=== PATIENT | female | born 1975 | race Caucasian/White ===

== ENCOUNTER 2023-11-04 13:49 | Day surgery (SDC) | payer OTHER, SELFPAY ==
[2023-11-04] VITALS (14 sets, daily range): BP systolic 138–189; BP diastolic 83–128; PULSE 62–104; RESP 11–16; TEMP 36.2–36.8; O2SAT 95–100; BMI 26.4
--- NOTE | 2023-11-04 | PATH_ITS ---
[facility] Accession Number: [id number] No. of containers..01 Tissue . 01 Material submitted: . appendix - APPENDIX . 01 Diagnosis: Vermiform Appendix, Appendectomy: Low-grade appendiceal mucinous neoplasm. - Margins of resection clear of neoplasm. - Negative for extra-appendiceal mucinous deposition or epithelium. - Background focal mild acute and eosinophilic inflammation of epithelium consistent with acute appendicitis. MRV 11/21/2023 1317 Local . 01 Comment: This case is also reviewed by Dr. Phill Maria, who concurs with the given interpretation. The particular features of this low-grade appendiceal mucinous neoplasm are considered a low risk of recurrence. . 01 Electronically signed: . Leisa Bloom MD, Pathologist NPI- [id number] . 01 Gross description: . The specimen is received in formalin, labeled with the patient's name, , and appendix, and consists of a duran vermiform appendix measuring 4.2 cm in length by 0.7 cm in average diameter with a small amount of mesoappendix extending out to 0.8 cm. The margin is inked blue. Sectioning reveals the lumen to contain clear mucoid material with no fecalith identified. The lumen averages 0.3 cm in diameter. The mucosa is slightly ragged and irregular. The toure average 0.3 cm thick with no perforation of distinct lesions identified. Casting Supervisor sections are submitted as follows: A1: Margin and entire bisected distal tip. A2: Casting Supervisor cross-sections. ([id number]) . The remaining appendix is submitted in cassettes A3-A4. ([id number]) /FRR 11/16/2023 1109 Local . 01 Pathologist provided ICD-10: K35.30 . 01 CPT . 934455 Specimen Comment: A courtesy copy of this report has been sent to [phone] Performed at: 01 [facility] [address] [place] [address], [place], [place] [id number] MD Samuel Sheridan MD Phone: [phone]
--- NOTE | 2023-11-04 14:16 | ED.ABDPAIN ---
HPI - Abdominal Pain <Joss Faustin PA-C - Last Filed: 11/04/23 15:53> General Chief Complaint: Abdominal Pain Stated Complaint: sent by urgent care for appendicitis Time Seen by Provider: 11/04/23 14:16 History of Present Illness HPI narrative: This is a 48-year-old female presents emergency department due to intermittent right lower quadrant abdominal pain for the last 3 days. She states that she was not in any pain currently but at times it causes her enough to ?double over?. She was seen at [facility] urgent care where they ordered an outpatient CT as they stated that they had limited surgery capabilities due to blackouts. CT showed possible early appendicitis. Tactile fever earlier this morning. Denies any nausea, vomiting, chest pain, shortness of breath, or any other concerning signs or symptoms. Patient had lab work and CT scan done. Lab work showed white blood cell 5.7, hemoglobin 12.9, neutrophil 58. Potassium 3.3. Creatinine 0.64. Bilirubin 2.0. UA negative for leukocytes and nitrites. CT scan on report showed ?suspect early acute appendicitis, no findings to suggest appendiceal perforation, no abscess. There is mild thickening of the terminal ileum and mild colonic wall thickening involving ascending colon, hepatic flexure, transverse colon and descending colon. CT findings suggest infectious enterocolitis or inflammatory bowel disease such as Crohn's disease. Recommended clinical correlation and follow up?. Patient was directed to come to our emergency department for further evaluation and management. Previously diagnosed with hypertension but not taking any medications. History of multiple sclerosis. History of cholecystectomy. Not on blood thinners. Has not eaten food or fluids today. Related Data Home Medications Medication Instructions Recorded Confirmed citalopram 10 mg tablet 10 mg PO DAILY 11/04/23 11/04/23 loratadine 10 mg tablet 10 mg PO DAILY 11/04/23 11/04/23 omeprazole 20 mg capsule,delayed 20 mg PO DAILY 11/04/23 11/04/23 release Previous Rx's Medication Instructions Recorded hydrocodone 5 mg-acetaminophen 325 1 tab PO Q8H PRN pain #10 tabs 11/05/23 mg tablet Allergies Allergy/AdvReac Type Severity Reaction Status Date / Time Opioids - Morphine Analogues Allergy ITCHING Verified 11/04/23 14:22 Sulfa (Sulfonamide AdvReac Vomiting Verified 11/04/23 14:22 Antibiotics) Review of Systems <Joss Faustin PA-C - Last Filed: 11/04/23 15:53> Review of Systems Narrative: GENERAL: Denies chills, fatigue, malaise, fever, sweats. HEENT: Denies sinus pain, ear pain, sore throat, difficulty swallowing, dizziness. RESPIRATORY: Denies dyspnea, cough, wheezing, hemoptysis, sputum. CARDIOVASCULAR: Denies chest pain, palpitations, orthopnea, edema, GASTROINTESTINAL: Reports right lower quadrant abdominal pain, nausea, vomiting : Denies dysuria, frequency, incontinence, hematuria, urinary retention. MUSCULOSKELETAL: denies weakness, joint pain, or bony pain SKIN: Denies rash, skin lesions, or other NEUROLOGIC: Denies weakness, headache, numbness, change in speech, confusion, seizures, incoordination. PSYCHIATRIC: No concerning psychosocial issues. 12 point review of systems is negative except for those stated above Patient History <Joss Faustin PA-C - Last Filed: 11/04/23 15:53> Social History household members: spouse Smoking Status: Never smoker Exam <LOVE Hsu Last Filed: 11/04/23 15:53> Narrative Exam Narrative: GENERAL: Well-developed patient, in mild distress. HEAD: Atraumatic. Normocephalic. EYES: Pupils equal round and reactive. Extraocular motions intact. No scleral icterus. No injection or drainage. ENT: Nose without bleeding, purulent drainage. Throat without erythema, tonsillar hypertrophy or exudate. Airway patent. NECK: Trachea midline. Non tender CARDIOVASCULAR: Regular rate and rhythm without murmurs, gallops, or rubs. RESPIRATORY: Clear to auscultation. Breath sounds equal bilaterally. No wheezes, rales, or rhonchi. GASTROINTESTINAL: Abdomen soft, non-tender, nondistended. Nontender to the right lower quadrant currently although patient states that she was severe right lower quadrant tenderness intermittently. EXTREMITIES: No edema or joint tenderness. BACK: Nontender without deformity or crepitance. No flank tenderness. NEURO: AOx3. SKIN: No rash or erythema of visible areas Initial Vital Signs Initial Vital Signs: Vital Signs Temperature 98.2 F 11/04/23 14:19 Pulse Rate 63 11/04/23 14:19 Respiratory Rate 16 11/04/23 14:19 Blood Pressure 189/128 H 11/04/23 14:19 Oxygen Delivery Method Room Air 11/04/23 14:19 <Nolvia Ashby DO - Last Filed: 11/09/23 10:07> Initial Vital Signs Initial Vital Signs: Vital Signs Temperature 98.2 F 11/04/23 14:19 Pulse Rate 63 11/04/23 14:19 Respiratory Rate 16 11/04/23 14:19 Blood Pressure 189/128 H 11/04/23 14:19 Oxygen Delivery Method Room Air 11/04/23 14:19 Course <Joss Faustin PA-C - Last Filed: 11/04/23 15:53> Orders Ordered: Discontinued Medications Acetaminophen (Acetaminophen 325 Mg Tablet) 975 mg PO NOW ONE Stop: 11/04/23 15:46 Last Admin: 11/04/23 16:24 Dose: 975 mg Documented By: ESTEBAN Acetaminophen (Acetaminophen 325 Mg Tablet) 650 mg PO Q6H PRN PRN Reason: Fever/Mild Pain (1-3) Hydrocodone Bitart/Acetaminophen (Hydrocodone/Acet 5/325 Tablet) 1 tab PO Q4H PRN PRN Reason: Pain, Moderate (4-6) Hydrocodone Bitart/Acetaminophen (Hydrocodone/Acet 5/325 Tablet) 2 tab PO Q4H PRN PRN Reason: Pain, Severe (7-10) Benzocaine (Benzocaine/Menthol 1 Daniel Pkt) 1 each PO PRN PRN PRN Reason: Sore Throat Bupivacaine HCl 30 ml/ (Epinephrine HCl 0.15 mg) 0 ml INJ NOW ONE Stop: 11/04/23 17:00 Last Admin: 11/04/23 17:00 Dose: 20 ml Documented By: Fentanyl (Fentanyl 100 Mcg/2 Ml Inj) 0 mcg IV Q5MIN PRN PRN Reason: Pain, Severe (7-10) Fentanyl (Fentanyl 100 Mcg/2 Ml Inj) 0 mcg IV Q5M PRN PRN Reason: Pain, Moderate (4-6) Fentanyl (Fentanyl 100 Mcg/2 Ml Inj) 0 mcg IV Q5M PRN PRN Reason: Pain, Severe (7-10) Hydralazine HCl (Hydralazine 20 Mg/Ml Vial) 10 mg IV Q6HR PRN PRN Reason: HTN if labetolol ineffective Hydromorphone HCl (Hydromorphone 1 Mg Inj) 0 mg IV Q5MIN PRN PRN Reason: Pain, Mild (1-3) Hydromorphone HCl (Hydromorphone 1 Mg Inj) 0 mg IV Q5MIN PRN PRN Reason: Pain, Moderate (4-6) Hydromorphone HCl (Hydromorphone 1 Mg Inj) 0 mg IV Q5MIN PRN PRN Reason: Pain, Severe (7-10) Hydromorphone HCl (Hydromorphone 0.5 Mg Inj) 0.5 mg IV Q2H PRN PRN Reason: Pain, Severe (7-10) Hydroxyzine HCl (Hydroxyzine 50 Mg/Ml Inj) 25 mg IM NOW PRN PRN Reason: Pain, Mild (1-3) Piperacillin Sod/Tazobactam (Sod 4.5 gm/ Sodium Chloride) 100 mls @ 200 mls/hr IV NOW ONE Stop: 11/04/23 14:26 Last Infusion: 11/04/23 15:53 Dose: Infused Documented By: Admin: 11/04/23 15:14 Dose: 200 mls/hr Documented By: MANASA POTASSIUM CHLORIDE IN WATER (Potassium Cl 10 Meq/100 Ml Velma) 10 meq in 100 mls @ 100 mls/hr IV Q1H MAX Stop: 11/04/23 19:14 Lactated Ringer's (Lactated Ringers) 1,000 mls @ 42 mls/hr IV CONT MAX Last Infusion: 11/04/23 17:56 Dose: Infused Documented By: Admin: 11/04/23 16:28 Dose: 42 mls/hr Documented By: ESTEBAN Lactated Ringer's (Lactated Ringers) 1,000 mls @ 120 mls/hr IV CONT MAX Last Admin: 11/04/23 22:50 Dose: Not Given Documented By: (2) Ibuprofen (Ibuprofen 600 Mg Tablet) 600 mg PO Q6H PRN PRN Reason: Fever/Mild Pain (1-3) Last Admin: 11/05/23 07:47 Dose: 600 mg Documented By: Admin: 11/05/23 01:47 Dose: 600 mg Documented By: (2) Admin: 11/04/23 19:48 Dose: 600 mg Documented By: (2) Labetalol HCl (Labetalol 20 Mg/4 Ml Syringe) 5 mg IV PRN PRN; Protocol PRN Reason: SBP>180 Metoclopramide HCl (Metoclopramide 10 Mg/2 Ml Inj) 10 mg IV NOW PRN PRN Reason: Nausea And Vomiting Naloxone HCl (Naloxone 0.4 Mg/Ml Vial) 0.2 mg IV Q2MIN PRN PRN Reason: Opiate Reversal Ondansetron HCl (Ondansetron 4 Mg/2 Ml Inj) 4 mg IV NOW PRN PRN Reason: Nausea And Vomiting Last Admin: 11/04/23 17:53 Dose: 4 mg Documented By: ESTEBAN Ondansetron HCl (Ondansetron 4 Mg/2 Ml Inj) 4 mg IV Q8HR PRN PRN Reason: Nausea And Vomiting Oxycodone HCl (Oxycodone Ir 5 Mg Tablet) 5 mg PO PACUNOW PRN PRN Reason: Mild or moderate pain Last Admin: 11/04/23 17:53 Dose: 5 mg Documented By: ESTEBAN Consultations Consultation #1: [id number]: Discussed case with Dr. Coyne, general surgeon, who states that he will catheterize team together and see the patient for possible surgery. Vital Signs Vital signs: Vital Signs - 8 hr 11/04/23 14:19 11/04/23 14:43 Temperature 98.2 F Pulse Rate 63 Respiratory Rate 16 Blood Pressure 189/128 H 176/108 H Oxygen Delivery Method Room Air <Nolvia Ashby DO - Last Filed: 11/09/23 10:07> Orders Ordered: Discontinued Medications Acetaminophen (Acetaminophen 325 Mg Tablet) 975 mg PO NOW ONE Stop: 11/04/23 15:46 Last Admin: 11/04/23 16:24 Dose: 975 mg Documented By: ESTEBAN Acetaminophen (Acetaminophen 325 Mg Tablet) 650 mg PO Q6H PRN PRN Reason: Fever/Mild Pain (1-3) Hydrocodone Bitart/Acetaminophen (Hydrocodone/Acet 5/325 Tablet) 1 tab PO Q4H PRN PRN Reason: Pain, Moderate (4-6) Hydrocodone Bitart/Acetaminophen (Hydrocodone/Acet 5/325 Tablet) 2 tab PO Q4H PRN PRN Reason: Pain, Severe (7-10) Benzocaine (Benzocaine/Menthol 1 Daniel Pkt) 1 each PO PRN PRN PRN Reason: Sore Throat Bupivacaine HCl 30 ml/ (Epinephrine HCl 0.15 mg) 0 ml INJ NOW ONE Stop: 11/04/23 17:00 Last Admin: 11/04/23 17:00 Dose: 20 ml Documented By: Fentanyl (Fentanyl 100 Mcg/2 Ml Inj) 0 mcg IV Q5MIN PRN PRN Reason: Pain, Severe (7-10) Fentanyl (Fentanyl 100 Mcg/2 Ml Inj) 0 mcg IV Q5M PRN PRN Reason: Pain, Moderate (4-6) Fentanyl (Fentanyl 100 Mcg/2 Ml Inj) 0 mcg IV Q5M PRN PRN Reason: Pain, Severe (7-10) Hydralazine HCl (Hydralazine 20 Mg/Ml Vial) 10 mg IV Q6HR PRN PRN Reason: HTN if labetolol ineffective Hydromorphone HCl (Hydromorphone 1 Mg Inj) 0 mg IV Q5MIN PRN PRN Reason: Pain, Mild (1-3) Hydromorphone HCl (Hydromorphone 1 Mg Inj) 0 mg IV Q5MIN PRN PRN Reason: Pain, Moderate (4-6) Hydromorphone HCl (Hydromorphone 1 Mg Inj) 0 mg IV Q5MIN PRN PRN Reason: Pain, Severe (7-10) Hydromorphone HCl (Hydromorphone 0.5 Mg Inj) 0.5 mg IV Q2H PRN PRN Reason: Pain, Severe (7-10) Hydroxyzine HCl (Hydroxyzine 50 Mg/Ml Inj) 25 mg IM NOW PRN PRN Reason: Pain, Mild (1-3) Piperacillin Sod/Tazobactam (Sod 4.5 gm/ Sodium Chloride) 100 mls @ 200 mls/hr IV NOW ONE Stop: 11/04/23 14:26 Last Infusion: 11/04/23 15:53 Dose: Infused Documented By: Admin: 11/04/23 15:14 Dose: 200 mls/hr Documented By: MANASA POTASSIUM CHLORIDE IN WATER (Potassium Cl 10 Meq/100 Ml Velma) 10 meq in 100 mls @ 100 mls/hr IV Q1H MAX Stop: 11/04/23 19:14 Lactated Ringer's (Lactated Ringers) 1,000 mls @ 42 mls/hr IV CONT MAX Last Infusion: 11/04/23 17:56 Dose: Infused Documented By: Admin: 11/04/23 16:28 Dose: 42 mls/hr Documented By: CG Lactated Ringer's (Lactated Ringers) 1,000 mls @ 120 mls/hr IV CONT MAX Last Admin: 11/04/23 22:50 Dose: Not Given Documented By: (2) Ibuprofen (Ibuprofen 600 Mg Tablet) 600 mg PO Q6H PRN PRN Reason: Fever/Mild Pain (1-3) Last Admin: 11/05/23 07:47 Dose: 600 mg Documented By: Admin: 11/05/23 01:47 Dose: 600 mg Documented By: (2) Admin: 11/04/23 19:48 Dose: 600 mg Documented By: (2) Labetalol HCl (Labetalol 20 Mg/4 Ml Syringe) 5 mg IV PRN PRN; Protocol PRN Reason: SBP>180 Metoclopramide HCl (Metoclopramide 10 Mg/2 Ml Inj) 10 mg IV NOW PRN PRN Reason: Nausea And Vomiting Naloxone HCl (Naloxone 0.4 Mg/Ml Vial) 0.2 mg IV Q2MIN PRN PRN Reason: Opiate Reversal Ondansetron HCl (Ondansetron 4 Mg/2 Ml Inj) 4 mg IV NOW PRN PRN Reason: Nausea And Vomiting Last Admin: 11/04/23 17:53 Dose: 4 mg Documented By: ESTEBAN Ondansetron HCl (Ondansetron 4 Mg/2 Ml Inj) 4 mg IV Q8HR PRN PRN Reason: Nausea And Vomiting Oxycodone HCl (Oxycodone Ir 5 Mg Tablet) 5 mg PO PACUNOW PRN PRN Reason: Mild or moderate pain Last Admin: 11/04/23 17:53 Dose: 5 mg Documented By: ESTEBAN Vital Signs Vital signs: Vital Signs - 8 hr 11/04/23 14:19 11/04/23 14:43 Temperature 98.2 F Pulse Rate 63 Respiratory Rate 16 Blood Pressure 189/128 H 176/108 H Oxygen Delivery Method Room Air MDM - Abdominal Pain <Joss Faustin PA-C - Last Filed: 11/04/23 15:53> Lab Data 11/04/23 14:30 11/04/23 14:30 Labs: Lab Results 11/04/23 Range/Units 14:30 WBC 6.0 (4.5-11.0) X10^3/uL RBC 4.25 (4.0-5.2) X10^6/uL Hgb 12.2 (12.0-16.0) g/dL Hct 36.1 (36-46) % MCV 84.8 (80-100) fL MCH 28.6 (26-34) PG MCHC 33.8 (30-36) % RDW 13.4 (11.6-14.8) % Plt Count 285 (150-400) X10^3/uL Neut % (Auto) 68.6 (50-75) % Lymph % (Auto) 21.4 L (25-40) % [place] % (Auto) 6.9 (3-14) % Eos % (Auto) 2.2 (2-4) % Baso % (Auto) 0.9 (0-2) % Neut # (Auto) 4100 (3979-3316) /uL Lymph # (Auto) 1300 (3619-5586) /uL [place] # (Auto) 400 (0-900) /uL Eos # (Auto) 100 (0-450) /uL Baso # (Auto) 100 (0-100) /uL Sodium 136 L (137-145) mmol/L Potassium 3.6 (3.4-5.1) mmol/L Chloride 102 (98-107) mmol/L Carbon Dioxide 26 (22-32) mmol/L BUN 19 H (7-17) mg/dL Creatinine 0.54 (0.52-1.04) mg/dL Estimated GFR > 60 (>60) mL/min BUN/Creatinine Ratio 35.2 H (6-22) Glucose 87 (70-100) mg/dL Lactate 0.9 (0.7-2.1) mmol/L Calcium 9.8 (8.4-10.2) mg/dL Total Bilirubin 1.9 H (0.2-1.3) mg/dL AST 44 H (14-36) IU/L ALT 25 (<35) IU/L Alkaline Phosphatase 41 (38-126) U/L C-Reactive Protein 0.7 (<1.0) mg/dL Total Protein 8.3 H (6.3-8.2) g/dL Albumin 4.9 (3.5-5.0) g/dL Globulin 3.4 (1.7-4.1) g/dL Albumin/Globulin Ratio 1.4 (1.0-2.8) MDM Narrative Medical decision making narrative: MDM * differential diagnosis includes but not limited to appendicitis, gastroenteritis, cholecystitis, diverticulitis * Prior records reviewed: Patient has not been to this emergency department past. * My lab interpretation: No evidence of leukocytosis. Potassium within normal limits based on repeat labs drawn today. Lactate within normal limits. * My imgaing interpretation: CT that was previously ordered showed evidence of possible early appendicitis. * Clinical Decision Rules/Scores evaluated: None * Independent discussions with: None ED Course: This is a 48-year-old female presents to the emergency department complaining of 3 days of intermittent right lower quadrant tenderness to palpation. She was seen at the [facility] urgent care where an outpatient CT was ordered which showed evidence of early appendicitis and she was directed to come here for possible surgery. Discussed case with Dr. Coyne, general surgeon, who states that he was see the patient to evaluate for possible surgery. Zosyn given. Lab work unremarkable. Patient was evaluated by Dr. Coyne and will be scheduled for surgery. Shared Decision Making: Discussed plan with the patient was comfortable with the plan. Social Considerations: None Disposition: Admitted for surgery <Nolvia Ashby, DO - Last Filed: 11/09/23 10:07> Lab Data Labs: Lab Results 11/04/23 Range/Units 14:30 WBC 6.0 (4.5-11.0) X10^3/uL RBC 4.25 (4.0-5.2) X10^6/uL Hgb 12.2 (12.0-16.0) g/dL Hct 36.1 (36-46) % MCV 84.8 (80-100) fL MCH 28.6 (26-34) PG MCHC 33.8 (30-36) % RDW 13.4 (11.6-14.8) % Plt Count 285 (150-400) X10^3/uL Neut % (Auto) 68.6 (50-75) % Lymph % (Auto) 21.4 L (25-40) % [place] % (Auto) 6.9 (3-14) % Eos % (Auto) 2.2 (2-4) % Baso % (Auto) 0.9 (0-2) % Neut # (Auto) 4100 (3852-7631) /uL Lymph # (Auto) 1300 (7652-6949) /uL [place] # (Auto) 400 (0-900) /uL Eos # (Auto) 100 (0-450) /uL Baso # (Auto) 100 (0-100) /uL Sodium 136 L (137-145) mmol/L Potassium 3.6 (3.4-5.1) mmol/L Chloride 102 (98-107) mmol/L Carbon Dioxide 26 (22-32) mmol/L BUN 19 H (7-17) mg/dL Creatinine 0.54 (0.52-1.04) mg/dL Estimated GFR > 60 (>60) mL/min BUN/Creatinine Ratio 35.2 H (6-22) Glucose 87 (70-100) mg/dL Lactate 0.9 (0.7-2.1) mmol/L Calcium 9.8 (8.4-10.2) mg/dL Total Bilirubin 1.9 H (0.2-1.3) mg/dL AST 44 H (14-36) IU/L ALT 25 (<35) IU/L Alkaline Phosphatase 41 (38-126) U/L C-Reactive Protein 0.7 (<1.0) mg/dL Total Protein 8.3 H (6.3-8.2) g/dL Albumin 4.9 (3.5-5.0) g/dL Globulin 3.4 (1.7-4.1) g/dL Albumin/Globulin Ratio 1.4 (1.0-2.8) Discharge Plan Departure Patient Disposition: Admitted to Surgery Clinical Impression: Acute appendicitis Qualifiers: Acute appendicitis type: with localized peritonitis Appendicitis gangrene presence: without gangrene Appendicitis perforation presence: without perforation Appendicitis abscess presence: without abscess Qualified Code(s): K35.30 - Acute appendicitis with localized peritonitis, without perforation or gangrene ED Sign-out <Nolvia Ashby DO - Last Filed: 11/09/23 10:07> Cosign ED Attending Coscleopatraature Attestation: I was available for consultation.
[2023-11-04 14:43] LABS: Add Manual Diff / Slide Review NO; Basophils Absolute Auto 100 /uL (0-100); Basophils Percent Auto 0.9 % (0-2); Eosinophils Absolute Auto 100 /uL (0-450); Eosinophils Percent Auto 2.2 % (2-4); Hematocrit 36.1 % (36-46); Hemoglobin 12.2 g/dL (12.0-16.0); Lymphocytes Absolute Auto 1300 /uL (1100-4500); Lymphocytes Percent Auto 21.4 % (25-40); Mean Corpuscular HGB Conc 33.8 % (30-36); Mean Corpuscular Hemoglobin 28.6 PG (26-34); Mean Corpuscular Volume 84.8 fL (80-100); Monocytes Absolute Auto 400 /uL (0-900); Monocytes Percent Auto 6.9 % (3-14); Neutrophils Absolute Auto 4100 /uL (1500-7000); Neutrophils Percent Auto 68.6 % (50-75); Platelet Count 285 X10^3/uL (150-400); Red Blood Cell Count 4.25 X10^6/uL (4.0-5.2); Red Cell Distribution Width 13.4 % (11.6-14.8)
[2023-11-04 15:08] LABS: Lactate (Lactic Acid) 0.9 mmol/L (0.7-2.1)
[2023-11-04 15:12] LABS: Alanine Aminotransferase 25 IU/L (<35); Albumin 4.9 g/dL (3.5-5.0); Albumin Globulin Ratio 1.4 (1.0-2.8); Alkaline Phosphatase 41 U/L (38-126); Aspartate Aminotransferase 44 IU/L (14-36); BUN Creatinine Ratio 35.2 (6-22); Bilirubin Total 1.9 mg/dL (0.2-1.3); Blood Urea Nitrogen 19 mg/dL (7-17); C-Reactive Protein Quant 0.7 mg/dL (<1.0); Calcium 9.8 mg/dL (8.4-10.2); Carbon Dioxide 26 mmol/L (22-32); Chloride 102 mmol/L (98-107); Estimated Glomerular Filt Rate > 60 mL/min (>60); Globulin 3.4 g/dL (1.7-4.1); Glucose 87 mg/dL (70-100); HEMOLYSIS 33 (0-50); Potassium 3.6 mmol/L (3.4-5.1); Sodium 136 mmol/L (137-145); Total Protein 8.3 g/dL (6.3-8.2)
[2023-11-04] MEDS: PIPERACILLIN/TAZO 4.5 GM in SODIUM CHLORIDE 0.9% 100 ML IV (15:14)
--- NOTE | 2023-11-04 15:24 | PC.NURSE ---
Pt admitted to surgery. Awaiting consult. Zosyn infusing. Pt given warm blankets. NAD.
--- NOTE | 2023-11-04 15:53 | P.HP_ITS ---
History of Present Illness History of Present Illness Date Patient Seen: 11/04/23 Time Patient Seen: 15:53 Chief complaint: sent by urgent care for appendicitis Narrative: Angelia is a 48-year-old woman who presented to urgent care today with 3 days of right lower abdominal pain. A CT scan was performed which showed acute appendicitis without evidence of perforation. She has had pain after voiding. Her only prior abdominal surgery is a laparoscopic cholecystectomy. [facility] Social History Smoking Status: Never smoker Meds Home Medications and Allergies Home Medications Medication Instructions Recorded Confirmed Type citalopram 10 mg tablet 10 mg PO DAILY 11/04/23 11/04/23 History loratadine 10 mg tablet 10 mg PO DAILY 11/04/23 11/04/23 History omeprazole 20 mg capsule,delayed 20 mg PO DAILY 11/04/23 11/04/23 History release Allergies Allergy/AdvReac Type Severity Reaction Status Date / Time Opioids - Morphine Analogues Allergy ITCHING Verified 11/04/23 14:22 Sulfa (Sulfonamide AdvReac Vomiting Verified 11/04/23 14:22 Antibiotics) Exam Vital Signs (past 8 hours): - 11/04/23 14:19 11/04/23 14:43 Temperature 98.2 F Pulse Rate 63 Respiratory Rate 16 Blood Pressure 189/128 H 176/108 H Oxygen Delivery Method Room Air Oxygen Delivery Method Room Air Narrative Exam Narrative: Tender to palpation at McBurney's point Objective Labs 11/04/23 14:30 11/04/23 14:30 Labs: Laboratory Results - last 24 hr 11/04/23 14:30 WBC 6.0 RBC 4.25 Hgb 12.2 Hct 36.1 MCV 84.8 MCH 28.6 MCHC 33.8 RDW 13.4 Plt Count 285 Neut % (Auto) 68.6 Lymph % (Auto) 21.4 L [place] % (Auto) 6.9 Eos % (Auto) 2.2 Baso % (Auto) 0.9 Neut # (Auto) 4100 Lymph # (Auto) 1300 [place] # (Auto) 400 Eos # (Auto) 100 Baso # (Auto) 100 Sodium 136 L Potassium 3.6 Chloride 102 Carbon Dioxide 26 BUN 19 H Creatinine 0.54 Estimated GFR > 60 BUN/Creatinine Ratio 35.2 H Glucose 87 Lactate 0.9 Calcium 9.8 Total Bilirubin 1.9 H AST 44 H ALT 25 Alkaline Phosphatase 41 C-Reactive Protein 0.7 Total Protein 8.3 H Albumin 4.9 Globulin 3.4 Albumin/Globulin Ratio 1.4 Assessment & Plan Assessment and plan (1) Acute appendicitis: Qualifiers: Acute appendicitis type: with localized peritonitis Appendicitis gangrene presence: without gangrene Appendicitis perforation presence: without perforation Appendicitis abscess presence: without abscess Qualified Code(s): K35.30 - Acute appendicitis with localized peritonitis, without perforation or gangrene Status: Acute Plan We reviewed the risks and benefits of laparoscopic appendectomy versus IV antibiotic therapy for acute appendicitis and she would like to proceed with surgery. She has received Zosyn in the ER. She has not eaten or drank today.
[2023-11-04] MEDS: ACETAMINOPHEN 325 MG TABLET 975 MG PO (16:24)
[2023-11-04] MEDS: LACTATED RINGERS 1,000 ML 42 ML IV (16:28)
--- NOTE | 2023-11-04 16:55 | SUR.OPER ---
Supine on padded OR bed, head on pillow, arms secured on padded arm boards at <90 degrees abduction, legs uncrossed, safety belt at thigh, tape over blanket over lower legs.Left arm tucked after induction.
[2023-11-04] MEDS: BUPIVACAINE 0.5% (PF) 30 ML, EPINEPHrine 0.15 MG INJ (17:00)
--- NOTE | 2023-11-04 17:35 | PM.OP.1 ---
Operative Date/Time/Diagnoses Date of procedure: 11/04/23 Time of procedure: 17:35 Pre-op diagnosis: Acute appendicitis Post-op diagnosis: same Procedure & Clinicians Procedure: Laparoscopic appendectomy Same procedure as scheduled: Yes Surgeon: Ambrocio Coyne Anesthesia Type: General Operative Notes Procedure in detail: The patient was on IV antibiotics. The patient was brought to the operating room, placed on the table in the supine position and general endotracheal anesthesia was induced. A time-out was performed. The abdomen was prepped and draped in the usual fashion. After injection of 0.5% Marcaine a 1 cm infraumbilical incision was created with a 15 blade scalpel. The umbilical stalk was grasped with a Geronimo clamp to elevate the abdominal wall. The infraumbilical midline fascia was cleared over 1 cm and the fascia was scored with cautery. The peritoneum was pierced with a Peon clamp. The Henry port was placed and the abdomen was insufflated to 15 mmHg. The camera was inserted and there was no evidence of any injury from the entry. Next, 5 mm ports were placed in the suprapubic and left lower quadrant positions under direct vision. The patient was placed in Trendelenburg with the right-side elevated. The terminal ileum was swept away from the cecum and the appendix was visualized. The appendix was inflamed and distended but not perforated and there was no evidence of gangrene. The mesoappendix was divided with the Power-seal to the base. Two PDS Endoloops were placed at the base and a 3rd endoloop was placed about a cm distally and the appendix was divided sharply. The specimen was placed in a Endo-Catch bag. A small amount of fluid with suctioned from the base of the appendix and pelvis. The table was flattened and the terminal ileum and omentum were allowed to slide in over the appendiceal stump. Finally, the 5 mm ports were removed under direct vision. The pneumoperitoneum was released and the Henry port was removed followed by the Endo-Catch bag. Additional local was injected into the fascia and the infraumbilical incision was closed with 4 interrupted 2-0 Vicryl sutures. The skin incisions were closed with 4 Monocryl. Steri-Strips were applied followed by Band-Aids. EBL: 5 mL Specimen: Appendix Post-operative Condition: stable Disposition: PACU
[2023-11-04] MEDS: ONDANSETRON 4 MG/2 ML INJ IV (17:53)
[2023-11-04] MEDS: OXYCODONE IR 5 MG TABLET PO (17:53)
--- NOTE | 2023-11-04 18:43 | PC.NURSE ---
Day shift: In room from PACU at approx 1815. Oriented to room and call light. OOB to void and steady on feet. Explained to Pt the importance of f/u with PCP about high BP. He said she will do that. Family in room for support. 3 lap sites are CDI. Other VS WNL. Reports pain ABD 2/10. Encouraged to drink water as tolerated. Call light in reach.
[2023-11-04] MEDS: IBUPROFEN 600 MG TABLET PO (19:48)
[2023-11-05 00:36] VITALS: BP 141/88; PULSE 69; RESP 16; TEMP 36.1; O2SAT 98
[2023-11-05] MEDS: IBUPROFEN 600 MG TABLET PO ×2 (01:47→07:47)
[2023-11-05 04:32] VITALS: BP 158/80; PULSE 68; RESP 16; TEMP 36.2; O2SAT 97
[2023-11-05 08:00] VITALS: BP 155/96; PULSE 71; RESP 16; TEMP 36.6; O2SAT 96
--- NOTE | 2023-11-05 12:00 | CM.DANOTE ---
Brief DCP assessment note Patient is a 48yo F here following appendicitis. Lap appy with Dr. Coyne 11.04.23 PCP Jessica Ascencio Payer Octavia VARNERO and self pay PHYSICIAN UNDERWRITER reviewed EMR. Per nursing team, pt doing well in room. likely to dc today after surgeon rounds on pt. From RN/chart, lives with spouse indep at home [facility]. Per nurse note, local family support available. PHYSICIAN UNDERWRITER unable to meet with today due to triaging needs. No needs identified from chart review/nurse report. Plan: home with family when medically stable, likely today. No CM needs identified at this time. CM team will continue to follow as needed. ANAT Bartholomew Discharge Planning/Care Management CM Discharge Assessment Start: 11/05/23 11:59 Freq: Status: Active Protocol: Document 11/05/23 11:59 (Rec: 11/05/23 12:00 [id number]) Discharge Planning Assessment Assigned Propulsion Systems Engineer ANAT Irby DPOA/Assigned Designee Name Shravan Lopez (spouse Contact Information [phone] Advance Directives? No History Provided By Medical Record Has Patient been admitted in last 30 No days? Prior Living Arrangements House Household Members spouse Barriers to Discharge No Discharge Plan Home Whiteboard Updated in Patient Room with No name and ext. # of Propulsion Systems Engineer Review Status In Process Next Review Type Continued Stay Review
--- NOTE | 2023-11-05 13:33 | PC.NURSE ---
Day shift: Discharge instructions gone over with patient and patient's spouse. All questions answered, patient stated understanding. PIV removed prior to discharge. All belongings with patient. This RN escorted patient via wheelchair to exit.
== END 2023-11-05 13:00 | disposition home or self-care (01) ==
LOC: ED 14:16 → AC 15:19 → OR 11-06 07:24
PROVIDERS: Emergency Provider Physician Assistant Medical; PCP Nurse Practitioner Family; Referring Provider Physician Assistant Medical; Visit Provider Surgery
PROC: 0DTJ4ZZ Resection of Appendix, Percutaneous Endoscopic Approach (ICD-10-PCS; CPT 44970; principal; 2023-11-04 17:00)
DX: K35.80 Unspecified acute appendicitis (principal); D49.0 Neoplasm of unspecified behavior of digestive system
CPT/HCPCS: 44970; 36415; 80053; 83605; 85025; 86140; 87040; 96365; 99222; 99284; G0378; J0171; J1100; J1885; J2250; J2405; J2543; J2704; J3010; J3490